=== PATIENT | male | born 1955 | race Caucasian/White ===

== ENCOUNTER 2016-09-19 18:52 | Observation (INO) | payer OTHER ==
[~2016-09-19] VITALS: Ht 175.3 cm; Wt 82.0 kg
[~2016-09-19 18:52] MED LIST: MULT-886 PO
[2016-09-19 18:57] VITALS: BP 200/77; PULSE 41; RESP 16; O2SAT 99
--- NOTE | 2016-09-19 19:32 | ED.REPORT ---
HPI-Chest Pain 40 and Over Date of Service Sep 19, 2016 ED Provider: Franc Whiteside DO A 60 year old male with a history of bradycardia and partial nephrectomy presents to the ED complaining of intermittent chest pain. Each episode lasts several minutes and is described as "sharp." The pt first experienced this pain briefly three days ago, but it seemed to resolve. The pain returned two days ago and continued to worsen through today. The pt states that he is bradycardic at baseline but denies hypertension. Nursing Notes Stated Complaint: PAIN IN CHEST Chief Complaint: Chest Pain Nursing Notes Reviewed: Yes Allergies: Coded Allergies: codeine (Verified Allergy, Intermediate, Shortness of Breath, Hives.TOLERATES MS, 01/27/12) Scheduled Ascorbic Acid (Vitamin C) 1,000 Mg Tab.chew 1,000 MG PO DAILY Multivit with Calcium,Iron,Min (Therapeutic M) 1 Each Tablet 1 EACH PO DAILY Potassium Gluconate (Potassium) 99 Mg Tablet 99 MG PO DAILY Vit C/Horta & Celery Ex/Grp E (Tart Horta Capsule) 1 Each Capsule 1 EACH PO DAILY Scheduled PRN Ibuprofen (Ibuprofen) 200 Mg Capsule 400-600 MG PO Q8H PRN PRN For Headache General Time Seen by MD: 19:30 Chief Complaint Chest pain Hx Obtained From: Patient Arrived By: Walk-in Sudden in Onset?: Yes Onset Occurred: 3 days ago Symptom Duration: Intermittent Recent Healthcare: No recent doctor visit, No recent hospitalization Similar Sx Previous: No Past Medical History Past Medical History bradycardia kidney stones Past Surgical History partial left nephrectomy bilateral hand surgery Social History Alcohol Use: Denies alcohol use Drug Use: Denies drug use Other Social History: Smokeless tobacco Ambulatory Status Independent Review of Systems Constitutional: Denies: Fever Respiratory: Denies: Non-productive cough Cardiovascular: Reports: Chest pain GI: Denies: Abdominal pain Musculoskeletal: Denies: Back pain Skin: Denies Rash Complete sys rev & neg: except as marked. Physical Exam Initial Vital Signs Vital Signs (First) Date Time Temp Pulse Resp B/P Pulse Ox O2 Delivery O2 Flow Rate FiO2 09/19/16 18:57 36.1 41 16 200/77 99 Room Air Initial VS: Reviewed General/Constitutional: Awake, Alert Respiratory / Chest: Atraumatic, Breath sounds NL, Breath sounds = bilat, No respiratory distress Cardiovascular: Regular rhythm, Heart sounds NL marked sinus bradycardia Abdomen: Atraumatic, Soft, Non-tender Neck: Atraumatic, Supple, Full range of motion Back: Atraumatic, Full range of motion Lower Extremity / Pelvis / MS: Atraumatic, Full range of motion Skin: Atraumatic, Color NL, No rash, Warm, Dry Neurologic: Oriented X3, Speech NL, No motor deficits, No sensory deficits Psychiatric: Affect NL, Mood NL Head / Eyes: Atraumatic, Normocephalic, PERRL, EOMI ENT: Atraumatic, Airway patent, Mucous membranes moist Upper Extremity / MS: Atraumatic, Full range of motion Interpretation & Diagnostics Interpretation & Diagnostics: CT Angio Chest Pulmonary Embolism: IMPRESSION: No evidence for central pulmonary embolism. No acute pulmonary disease. Lab Results Interpretation Result Diagram: 09/19/16191809/19/161918 Test 09/19/16 19:19 White Blood Count 4.0th/mm3 (3.8-10.1) Red Blood Count 4.28mil/mm3 (4.40-5.80) Hemoglobin 13.4g/dL (13.8-17.2) Hematocrit 40.9% (41.0-50.0) Mean Corpuscular Volume 95.6fL (81-100) Mean Corpuscular Hemoglobin 31.3pg (27.0-35.0) Mean Corpuscular Hemoglobin Concent 32.8% (32.0-37.0) Red Cell Distribution Width 13.3% (12.3-15.4) Platelet Count 263bil/L (150-400) Neutrophils (%) (Auto) 51.2% (40-74) Lymphocytes (%) (Auto) 41.8% (14-46) Monocytes (%) (Auto) 4.5% (4-12) Eosinophils (%) (Auto) 2.0% (0-5) Basophils (%) (Auto) 0.5% (0-3) D-Dimer 0.82mg/L FEU (<0.50) Sodium Level 140mEq/L (134-144) Potassium Level 4.4mEq/L (3.5-5.2) Chloride Level 102mEq/L (97-108) Carbon Dioxide Level 22mmol/L (18-29) Blood Urea Nitrogen 21mg/dL (8-27) Creatinine 0.62mg/dL (0.76-1.27) Estimat Glomerular Filtration Rate 140mL/min (>59) Glucose Level 84mg/dL (60-99) Calcium Level 9.7mg/dL (8.5-10.1) Magnesium Level 2.2mg/dL (1.6-2.6) Total Bilirubin 0.4mg/dL (0.0-1.2) Aspartate Amino Transf (AST/SGOT) 20U/L (0-50) Alanine Aminotransferase (ALT/SGPT) 17U/L (0-44) Alkaline Phosphatase 72U/L (25-160) Troponin T < 0.010ug/L (0.0-0.011) Total Protein 7.1g/dL (6.4-8.4) Albumin 4.2g/dL (3.4-5.0) Hold Pierre Top Tube Received (Received) Pulse Oximetry Interpretation Pulse Oximetry Interpretation: 99% on room air Pulse Oximetry: Pulse Ox normal ECG Interpretation ECG Interpretation: marked sinus bradycardia with a rate of 38 LVH anterior Q waves, possibly due to LVH Time: 19:17 Interpreted by: ED physician X-Ray Chest Interpretation Chest Xray Interpretation: IMPRESSION: No acute cardiopulmonary disease. Dictated by: Yousif Victoria M.D. on 09/19/2016 at 19:36 Approved by: Yousif Victoria M.D. on 09/19/2016 at 19:37 Interpretation / Wet Read by: Interpret - Radiologist Re-Eval/Medical Decision Med Decision/Clinical Course 60-year-old male presents with a hypertensive crisis and associated chest pain. His pain was treated with IV opiates and the blood pressure was treated with IV hydralazine. I chose this because he is profoundly bradycardic with a heart rate is low as 35. It does appear to be sinus on the EKG and rhythm strips. Laboratory work is reassuring. D-dimer is elevated. CT exam his chest is otherwise unremarkable. Hydralazine opiates and aspirin were given. Pain resolved however his blood pressure started to creep up he would have more pain. Oral enalapril given. Will admit to PCU. Source of Hx: Old records Time of Eval: 21:46 Re-Evaluation/Progress Note: Pt rechecked, whose pain had improved but is now returning. The plan for admission is discussed. The pt understands and agrees with the plan. All questions are addressed at this time. Consultation : Referral / Consult Name: Kely Kate DO Consulted With: Hospitalist Call Returned at: 21:50 Seafood Specialist: Agrees with eval, Agrees with plan, Accepts admit Note: Spoke with Dr. Kate, hospitalist, regarding pt's case. Dr. Kate agrees with the evaluation and agrees to admit the pt. Counseled Regarding: Diagnosis, Lab results, Need for admission Discharge & Departure Primary Impression: Chest pain Chest pain type: unspecified Qualified Code: R07.9 - Chest pain, unspecified Additional Impressions: Hypertensive crisis Bradycardia Disposition: ADMITTED TO HOSPITAL Discharge Condition All VS Reviewed: Yes Condition: Stable Referrals: [facility] Crit Care Except Billable Proc Time Spent: 30-74 minutes Services Performed: Patient management by me, Time spent at bedside, Reviewing test results, Reviewing imaging, Discussing patient care, Documentation in record Critical Care Notes: Managing hypertension, bradycardia, and chest pain Ingris Attestation Portions of this note were transcribed by Scott Foote. I, Dr. Whiteside personally performed the history, physical exam and medical decision-making; I reviewed and confirmed the accuracy of the information in the transcribed note. Signed by: Ingris Middleton, 09/19/16 and 2833. copies to: [facility] Franc Whiteside DO Sep 19, 2016 19:32 SCOTT FOOTE Sep 19, 2016 19:39
[2016-09-19 19:35] LABS: BASOPHILS % (AUTO) 0.5 % (0-3); MONOCYTES % (AUTO) 4.5 % (4-12); Mean Corpuscular Hemoglobin 31.3 pg (27.0-35.0); Mean Corpuscular Volume 95.6 fL (81-100); NEUTROPHILS % (AUTO) 51.2 % (40-74); Platelet Count 263 bil/L (150-400)
--- NOTE | 2016-09-19 19:39 | DRSVH ---
PROCEDURE: X-RAY CHEST ONE VIEW, PORTABLE ([id number]) INDICATIONS: 60 year-old male with chest pain since Monday. TECHNIQUE: One view of the chest was acquired. COMPARISON: [facility], CR, CHEST 2VW, 07/23/2014, 5:27. [facility], , CH EST 2VW, 08/20/2013, 16:12. [facility], , CHEST 2VW, 06/05/2013, 10:51. FINDINGS: Surgical changes and devices: None. Lungs and pleura: No pleural effusions or pneumothorax. Lungs are clear. Mediastinum: Mediastinal contours appear normal. Heart size is normal. Bones and chest wall: No suspicious bony lesions. Overlying soft tissues appear unremarkable. IMPRESSION: No acute cardiopulmonary disease. Dictated by: Yousif Victoria M.D. on 09/19/2016 at 19:36 Approved by: Yousif Victoria M.D. on 09/19/2016 at 19:37
[2016-09-19] MEDS: fentaNYL-PF 50 mCg/mL 2 mL Inj IVPUSH PRN ×3 (19:45→20:58)
[2016-09-19 20:03] LABS: TROPONIN T < 0.010 ug/L (0.0-0.011)
[2016-09-19 20:15] VITALS: BP 211/74; PULSE 40; RESP 13; O2SAT 97
[2016-09-19 20:18] LABS: Magnesium 2.2 mg/dL (1.6-2.6)
--- NOTE | 2016-09-19 20:52 | DRSVH ---
PROCEDURE: CT ANGIO CHEST PULMONARY EMBOLISM ([id number]) INDICATIONS: 60-year-old male with intermittent chest pain and elevated d-dimer level. TECHNIQUE: After the administration of intravenous contrast, 2 mm thick sections acquired from the pulmonary api alejandro to the posterior costophrenic angles. 3-dimensional maximum intensity projection (MIP) coronal a nd sagittal reformats were then acquired through the thorax. For radiation dose reduction, the follo wing was used: automated exposure control, adjustment of mA and/or kV according to patient size. COMPARISON: None. FINDINGS: Image quality: Excellent. Pulmonary arteries: Pulmonary arteries are normal in size, and demonstrate no intraluminal filling d efects to suggest central pulmonary embolism. Lungs and pleura: Lungs are clear. No pleural effusions or pneumothorax. Central and peripheral ai rways are patent. Mediastinum: There is mild cardiomegaly, without pericardial effusion. No mediastinal or hilar adeno saadia. Thoracic aorta is normal in caliber and enhancement. Esophagus is normal in caliber, without hiatal hernia. Bones and chest wall: No suspicious bony lesions. Ribs and thoracic spine appear intact throughout. Thyroid gland is normal in overall size. No axillary or supraclavicular adenopathy. Abdomen: 1.3 cm exophytic lateral left renal cortical simple cyst is incidentally noted. Other visua lized upper abdominal solid organs appear normal in the early arterial phase of enhancement. IMPRESSION: No evidence for central pulmonary embolism. No acute pulmonary disease. Dictated by: Yousif Victoria M.D. on 09/19/2016 at 20:45 Approved by: Yousif Victoria M.D. on 09/19/2016 at 20:51
[2016-09-19 20:58] VITALS: BP 156/109; PULSE 41; RESP 12; O2SAT 96
[2016-09-19] MEDS ORDERED: HYDROmorphone 0.5 mg/0.5 mL iSecure Syringe IVPUSH ONE (21:05)
[2016-09-19] MEDS ORDERED: hydrALAZINE 20 mg/mL Inj IV ONE ×2 (21:05→23:45)
[2016-09-19] MEDS ORDERED: ASCO100089 PO (21:36)
[2016-09-19] MEDS ORDERED: POTA99TA21 PO (21:36)
[2016-09-19] MEDS ORDERED: VIT1CAPS4 PO (21:36)
[2016-09-19] MEDS ORDERED: MULT-140 PO (21:36)
[2016-09-19] MEDS ORDERED: IBUP200C PO (21:37)
[2016-09-19 22:01] VITALS: BP 141/61; PULSE 44; RESP 16; O2SAT 96
[2016-09-19] MEDS ORDERED: Ondansetron 2 mg/mL 2 mL Inj IVPUSH PRN (22:35)
[2016-09-19] MEDS ORDERED: Atropine 1 mg/10 mL (Code) Syringe IVPUSH PRN (22:35)
[2016-09-19] MEDS ORDERED: Senna-Docusate 8.6-50 mg Tablet PO PRN (22:35)
[2016-09-19] MEDS ORDERED: Polyethylene Glycol (PEG) 17 Gm Powder PO PRN (22:35)
[2016-09-19] MEDS ORDERED: Alum-Mag Hydrox-Simeth 30 mL Suspension PO PRN (22:35)
[2016-09-19 23:12] VITALS: BP 141/61; PULSE 44; RESP 16; O2SAT 96
[2016-09-19 23:26] VITALS: PULSE 43
--- NOTE | 2016-09-19 23:39 | PCM.HPMED ---
Subjective Date of Service Sep 19, 2016 Primary Provider: Admitting Physician: Kely Kate DO Primary Care Physician: Sincere Zhang Attending Physician: Kely Kate DO Admit Status: From the Emergency Department Chief Complaint: Chest pain History of Present Illness: Very pleasant 60yo man with long documented history of asymptomatic bradycardia presents with new onset of chest pain at rest worsening over the last four days. His blood pressure in the ER was initially 200/776 and was controlled with Hydralazine 10mg IV. He describes the chest pain as a constant aching pain deep in his chest and points to a line across the chest at approximately the nipple line as the location. It was initially lasting only a few moments very intermittently and slow became constant at which point he came to the ER. He has felt cold since this started, has had headaches, and some dizziness. He denies radiation of pain, nausea, sweating, cough, shortness of breath. He works in a [employer] doing heavy work, but denies any strain or injury that could have contributed to this pain. Review of Systems: 14point ROS is otherwise negative except as noted in the HPI above. Allergies Coded Allergies: codeine (Verified Allergy, Intermediate, Shortness of Breath, Hives.TOLERATES MS, 01/27/12) Home Medications Multivitamin PMH Kidney stone Surgical History Partial Nephrectomy for severe kidney stone damage 30 years ago Dupuytren's contracture surgery Family History Father of [place] Mother at age 43 of unknown causes Social History Hx Alcohol Use: Yes (one six pack of beer over each weekend) Hx Substance Use: No Hx Tobacco Use: Yes (chews) Smoking Status: Never Smoker Living Arrangement: with Family Exam Vital Signs Vital Sign - Last Date Time Temp Pulse Resp B/P Pulse Ox O2 Delivery O2 Flow Rate FiO2 09/19/16 23:12 36.1 44 16 141/61 96 Room Air Exam General: Alert, Oriented X3, Cooperative, No Acute Distress Head: Normocephalic, atraumatic. External ears normal. Eyes: PERRLA, EOMI. Anicteric sclerae. Mouth: Mouth Normal, Mucous Membranes Moist/[place], poor dentition, no upper teeth, no use of dentures Neck: Neck supple with full range of motion. Chest & Lungs: Clear to auscultation bilaterally with no crackles, wheezes, or rhonchi. Chest is very tender to palpation: anterior, bilateral, at the level of rib 4. Cardiovascular: Bradycardic with Regular Rhythm, Normal S1, Normal S2, No Murmurs/Rubs/Gallops Abdomen: Non-tender, Non-distended, No masses, Normoactive bowel tones, Soft Musculoskeletal: Normal Range of Motion Extremities: No cyanosis/clubbing/edema bilaterally Neurological: Grossly Neurologically Intact, Cranial Nerves 2-12 Intact, Normal Speech. Lab and Diagnostics Labs Laboratory Tests Test 09/19/16 19:19 09/19/16 22:55 White Blood Count 4.0th/mm3 (3.8-10.1) Red Blood Count 4.28mil/mm3 (4.40-5.80) Hemoglobin 13.4g/dL (13.8-17.2) Hematocrit 40.9% (41.0-50.0) Mean Corpuscular Volume 95.6fL (81-100) Mean Corpuscular Hemoglobin 31.3pg (27.0-35.0) Mean Corpuscular Hemoglobin Concent 32.8% (32.0-37.0) Red Cell Distribution Width 13.3% (12.3-15.4) Platelet Count 263bil/L (150-400) Neutrophils (%) (Auto) 51.2% (40-74) Lymphocytes (%) (Auto) 41.8% (14-46) Monocytes (%) (Auto) 4.5% (4-12) Eosinophils (%) (Auto) 2.0% (0-5) Basophils (%) (Auto) 0.5% (0-3) D-Dimer 0.82mg/L FEU (<0.50) Sodium Level 140mEq/L (134-144) Potassium Level 4.4mEq/L (3.5-5.2) Chloride Level 102mEq/L (97-108) Carbon Dioxide Level 22mmol/L (18-29) Blood Urea Nitrogen 21mg/dL (8-27) Creatinine 0.62mg/dL (0.76-1.27) Estimat Glomerular Filtration Rate 140mL/min (>59) Glucose Level 84mg/dL (60-99) Calcium Level 9.7mg/dL (8.5-10.1) Magnesium Level 2.2mg/dL (1.6-2.6) Total Bilirubin 0.4mg/dL (0.0-1.2) Aspartate Amino Transf (AST/SGOT) 20U/L (0-50) Alanine Aminotransferase (ALT/SGPT) 17U/L (0-44) Alkaline Phosphatase 72U/L (25-160) Troponin T < 0.010ug/L (0.0-0.011) 0.010ug/L (0.0-0.011) Total Protein 7.1g/dL (6.4-8.4) Albumin 4.2g/dL (3.4-5.0) Hold Pierre Top Tube Received (Received) Received (Received) Result Diagram: 09/19/16191809/19/161918 X-Rays, CTs and MRIs CTA chest IMPRESSION: No evidence for central pulmonary embolism. No acute pulmonary disease. CXR indicating no acute cardiopulmonary disease 12-lead ECG marked sinus bradycardia with a rate of 38 LVH anterior Q waves, possibly due to LVH Assessment & Plan 60yo man with history of bradycardia presenting with new onset chest pain worsening over 4 days and hypertensive emergency. Both were controlled well in the ED with hydralazine and IV narcotic pain medications. Patient's bradycardia is documented in outpatient records as asymptomatic and present as far back as 2006. He has no history of HTN. He does report some heartburn symptoms in the past but none currently. 1. Chest pain, POA, secondary to costochondritis/chest wall pain vs hypertensive emergency vs less likely NSTEMI with normal troponin and EKG positive for bradycardia and LVH. Chest wall is very tender to palpation. -Repeat of Hydralazine 10mg IV on the floor after SBP increased again over 200. -Phone consult with Dr Chase to discuss the Hydralazine and other treatment. Per Dr Chase we added Amlodipine 10mg PO and Lisinopril 20mg PO -If BP not controlled on this regimen consider placing patient in CCU and starting a CCB drip. -Morphine 1-5mg IV q5m PRN for chest pain. -Consider adding a muscle relaxant 2. Bradycardia, POA, chronic and asymptomatic, no rate increase with pain or high blood pressure. 3. History of GERD, asymptomatic at present but with weekly drinking of a six pack of beer it is possible that silent reflux may have a part in his current problems. -Pantoprazole 40mg IV BID ordered -GI cocktail with viscous lidocaine did not improve the chest pain, but did make the patient's mouth numb. PRN medications ordered for nausea, and constipation ADDENDUM: Patient's chest pain not well controlled with Morphine 4mg IV, BP was stable in normal limits so he was given one dose of Nitrostat sublingual and BP dropped to 87/33 with no improvement of pain, BP stabilized quickly with a bolus of NS 500ml IV. Repeat EKG indicates bradycardia but no indications of ischemia, unchanged from previous EKGs. With blood pressure controlled and morning labs back showing a third normal troponin along with an excellent lipid panel this chest pain can most likely be attributed to chostochondritis or muscle strain of the chest wall. Pain Evaluation: Adequate Pain Control GI Prophylaxis: Proton Pump Inhibitor VTE Prophylaxis: Sub-Q Enoxaparin Resuscitation Status: CPR: Attempt Resuscitation Attending Statement The patient was seen and examined together with house staff on 09/20/2016 and I agree with the history, exam and plan as outlined in the note above. Kurtis Go DO Sep 19, 2016 23:39 Kely Kate DO Sep 20, 2016 06:10
[2016-09-19] MEDS: Sodium Chloride LOK Flush 10 mL Syringe IVFLUSH SCH (23:59)
[2016-09-20 00:06] VITALS: BP 185/71; PULSE 48; RESP 12; O2SAT 97
[2016-09-20] MEDS: Pantoprazole 4 mg/mL 10 mL Inj IVPUSH SCH ×2 (00:51→08:43)
[2016-09-20] MEDS ORDERED: LidocaineVisc 2%:Antacid 1:1 10 mL Syringe PO ONE (03:10)
[2016-09-20 05:25] LABS: TROPONIN T 0.01 ug/L (0.0-0.011)
[2016-09-20 05:38] VITALS: BP 129/61; PULSE 41; RESP 14; O2SAT 97
[2016-09-20] MEDS ORDERED: HYDROmorphone 1 mg/mL Inj IVPUSH ONE (05:55)
--- NOTE | 2016-09-20 06:32 | NUR ---
Admit Pt arrived to [facility] room 2012 at approx. 2305 from ED; report received from Caro Zhang RN. All belongings transferred with pt; at bedside. Admit documentation and med rec completed. Information on advance directive given. Tele SB 30s-50s. No acute symptoms of bradycardia. Pt reports chronic condition. Pt c/o 9/10 sharp CP upon admit, SBP 216. MD collado, hydralazine ordered and administered with subsequent lowering of BP; additional BP medications and Protonix administered. Pt reports no change to CP. 2mg morphine administered with no relief; MD collado, additional 4mg administered. Pt reports pain "slightly" better. MD collado, pt given Tylenol without relief and order obtained to hold additional morphine for one hour minimum. GI cocktail order obtained and administered, pt denies any effect other than "my mouth feels numb." MD collado, order obtained to give 1 SL nitro. SBP prior to administration 120s; immediate drop to 80s-90s after administration with pt report of dizziness and jitters. MD collado, orders obtained for NS bolus; approx. 90mls administered with spontaneous rise in BP to SBP 120s and stable. MD aware. EKG obtained. Hospitalist consulted for pt care, order given for Dilaudid IVP one time; 1mg given with relief from 10/10 CP to 7/10. Pt reports Dilaudid more effective than any other medication. Unable to rest this shift.
[2016-09-20] MEDS ORDERED: HYDR-4003 PO (08:07)
--- NOTE | 2016-09-20 08:07 | PCM.DIMED ---
Discharge Instructions Date of Service Sep 20, 2016 Dates of Hospitalization Sep 19, 2016 at 22:06 Discharge Diagnosis Discharge Diagnosis 1. Chest pain secondary to chest wall, improved 2. Transient hypotension secondary to pain. 3. Chronic bradycardia Diet No restrictions Activity No restrictions Call your provider Shortness of breath, Chest pain Patient Instructions See your doctor (PCP, at [facility]). Ramsey Quiroga MD Sep 20, 2016 08:06
[2016-09-20] MEDS: Sodium Chloride LOK Flush 10 mL Syringe IVFLUSH SCH (08:30)
[2016-09-20] MEDS ORDERED: Heparin 5,000 Unit/mL Inj SUBQ SCH (08:30)
[2016-09-20] MEDS ORDERED: HYDROmorphone 0.5 mg/0.5 mL iSecure Syringe IVPUSH ONE (08:55)
--- NOTE | 2016-09-20 09:24 | NUR ---
Social Work: Brief Note/Readiness for Discharge Data: EMR reviewed. Pt is a 60 year old male admitted 09/19/16 for chest pain, hypertension, bradycardia per H&P. Pt has no insurance at this time. [facility] provided [facility] to pt. Pt states that admissions gave him a business card to contact regarding insurance after hospitalization. Pt's PCP is through [facility]. SW met with pt and Pam [phone] at bedside regarding discharge plan, SW role explained. Pt alert and oriented x3. [place] Per H&P, pt drinks a 6 pack of beer every weekend. SW spoke with pt regarding this, pt denies any concerns related to his drinking, emphatically stating "I can stop whenever I want, I don't drink on the weekdays." Pt declined CD resources. Pt denied any suicidal or homicidal ideation. Pt to discharge home with to transport via POV. No anticipated discharge needs. SW will continue to follow. Assessment: [place]. Plan: Pt is not concerned with ETOH use, declined CD resources. [facility] provided. Pt to discharge home with to transport via POV. No anticipated discharge needs. SW will continue to follow. BERYL Dias
--- NOTE | 2016-09-20 09:27 | NUR ---
discharge 0935 pt discharged. PIV removed with ease. Pt spoke to Dr Quiroga about dc meds, he requested dilaudid. Dr Quiroga declined to give him dilaudid. All dc questions asked and answered.
--- NOTE | 2016-09-23 13:47 | PCM.DC.MED ---
Discharge Summary Date of Service Sep 20, 2016 Dates of Hospitalization Date of Hospital Admission Sep 19, 2016 at 22:06 Date of Discharge: Sep 20, 2016 Providers: Admitting Physician: Kely Kate DO Primary Care Physician: Sincere Zhang [facility] Attending Physician: Kely Kate DO Diagnosis at Time of Discharge Diagnosis at Time of Discharge 1. Chest pain secondary to chest wall, improved 2. Transient hypotension secondary to pain. 3. Chronic bradycardia Consultations None Procedures XRay, CTs & MRIs CTA chest IMPRESSION: No evidence for central pulmonary embolism. No acute pulmonary disease. CXR indicating no acute cardiopulmonary disease ECG 12 Lead marked sinus bradycardia with a rate of 38 LVH anterior Q waves, possibly due to LVH Invasive Procedures None Brief History Very pleasant 60yo man with long documented history of asymptomatic bradycardia presents with new onset of chest pain at rest worsening over the last four days. His blood pressure in the ER was initially 200/776 and was controlled with Hydralazine 10mg IV. He describes the chest pain as a constant aching pain deep in his chest and points to a line across the chest at approximately the nipple line as the location. It was initially lasting only a few moments very intermittently and slow became constant at which point he came to the ER. He has felt cold since this started, has had headaches, and some dizziness. He denies radiation of pain, nausea, sweating, cough, shortness of breath. He works in a [employer] doing heavy work, but denies any strain or injury that could have contributed to this pain. Hospital Course 60yo man with history of bradycardia presenting with new onset chest pain worsening over 4 days and hypertensive emergency. Both were controlled well in the ED with hydralazine and IV narcotic pain medications. Patient's bradycardia is documented in outpatient records as asymptomatic and present as far back as 2006. He has no history of HTN. He does report some heartburn symptoms in the past but none currently. 1. Chest pain, POA, secondary to costochondritis/chest wall pain vs hypertensive emergency vs less likely NSTEMI with normal troponin and EKG positive for bradycardia and LVH. Chest wall is very tender to palpation. -Repeat of Hydralazine 10mg IV on the floor after SBP increased again over 200. -Phone consult with Dr Chase to discuss the Hydralazine and other treatment. Per Dr Chase we added Amlodipine 10mg PO and Lisinopril 20mg PO -If BP not controlled on this regimen consider placing patient in CCU and starting a CCB drip. -Morphine 1-5mg IV q5m PRN for chest pain. -Consider adding a muscle relaxant 2. Bradycardia, POA, chronic and asymptomatic, no rate increase with pain or high blood pressure. 3. History of GERD, asymptomatic at present but with weekly drinking of a six pack of beer it is possible that silent reflux may have a part in his current problems. -Pantoprazole 40mg IV BID ordered -GI cocktail with viscous lidocaine did not improve the chest pain, but did make the patient's mouth numb. PRN medications ordered for nausea, and constipation ADDENDUM: Patient's chest pain not well controlled with Morphine 4mg IV, BP was stable in normal limits so he was given one dose of Nitrostat sublingual and BP dropped to 87/33 with no improvement of pain, BP stabilized quickly with a bolus of NS 500ml IV. Repeat EKG indicates bradycardia but no indications of ischemia, unchanged from previous EKGs. With blood pressure controlled and morning labs back showing a third normal troponin along with an excellent lipid panel this chest pain can most likely be attributed to chostochondritis or muscle strain of the chest wall. Course: He was admitted and ruled out with serial cardiac enzymes. He was reassured the pain sounded muscular and not cardiac and he declined any further cardiac workup. Exam Vital Signs (Last) Date Time Temp Pulse Resp B/P Pulse Ox O2 Delivery O2 Flow Rate FiO2 09/20/16 05:38 36.6 41 14 129/61 97 Room Air Exam Patient was seend and examined on the day of discharge Test 09/19/16 19:19 09/19/16 22:55 09/20/16 04:40 White Blood Count 4.0th/mm3 (3.8-10.1) Red Blood Count 4.28mil/mm3 (4.40-5.80) Hemoglobin 13.4g/dL (13.8-17.2) Hematocrit 40.9% (41.0-50.0) Mean Corpuscular Volume 95.6fL (81-100) Mean Corpuscular Hemoglobin 31.3pg (27.0-35.0) Mean Corpuscular Hemoglobin Concent 32.8% (32.0-37.0) Red Cell Distribution Width 13.3% (12.3-15.4) Platelet Count 263bil/L (150-400) Neutrophils (%) (Auto) 51.2% (40-74) Lymphocytes (%) (Auto) 41.8% (14-46) Monocytes (%) (Auto) 4.5% (4-12) Eosinophils (%) (Auto) 2.0% (0-5) Basophils (%) (Auto) 0.5% (0-3) D-Dimer 0.82mg/L FEU (<0.50) Sodium Level 140mEq/L (134-144) Potassium Level 4.4mEq/L (3.5-5.2) Chloride Level 102mEq/L (97-108) Carbon Dioxide Level 22mmol/L (18-29) Blood Urea Nitrogen 21mg/dL (8-27) Creatinine 0.62mg/dL (0.76-1.27) Estimat Glomerular Filtration Rate 140mL/min (>59) Glucose Level 84mg/dL (60-99) Calcium Level 9.7mg/dL (8.5-10.1) Magnesium Level 2.2mg/dL (1.6-2.6) Total Bilirubin 0.4mg/dL (0.0-1.2) Aspartate Amino Transf (AST/SGOT) 20U/L (0-50) Alanine Aminotransferase (ALT/SGPT) 17U/L (0-44) Alkaline Phosphatase 72U/L (25-160) Total Protein 7.1g/dL (6.4-8.4) Albumin 4.2g/dL (3.4-5.0) Hold Pierre Top Tube Received (Received) Troponin T 0.010ug/L (0.0-0.011) Triglycerides Level 90mg/dL (0-149) Cholesterol Level 160mg/dL (100-199) LDL Cholesterol, Calculated 58.000mg/dL (0-99) VLDL Cholesterol 18.000mg/dL HDL Cholesterol 84mg/dL (>39) Cholesterol/HDL Ratio 1.90 (0.0-4.4) Discharge Medications Discharge Medications Ascorbic Acid (Vitamin C) 1,000 Mg Tab.chew 1,000 MG PO DAILY (Reported) Multivit with Calcium,Iron,Min (Therapeutic M) 1 Each Tablet 1 EACH PO DAILY ( Reported) Potassium Gluconate (Potassium) 99 Mg Tablet 99 MG PO DAILY (Reported) Vit C/Horta & Celery Ex/Grp E (Tart Horta Capsule) 1 Each Capsule 1 EACH PO DAILY (Reported) As needed Hydrocodone-Acetaminophen 5-325 mg (Hydrocodone-Acetaminophen 5-325 mg) 1 Each Tablet 1 TABLET PO Q4H PRN PRN For Pain Prescribed by: JIMENEZ VEGA MD Ibuprofen (Ibuprofen) 200 Mg Capsule 400-600 MG PO Q8H PRN PRN For Headache ( Reported) Followup Plan Disposition: Home, with . Discharge Diet: No restrictions Discharge Activity: No restrictions Patient Instructions See your doctor (PCP, at resident's clinic). Time spent 30 minutes Jimenez Vega MD Sep 23, 2016 13:47
== END 2016-09-20 10:00 | disposition home or self-care (01) ==
LOC: SED 18:52 → PCC 22:06
PROVIDERS: ADMIT Internal Medicine; ATTEND Internal Medicine
DX: R07.9 Chest pain, unspecified (principal); M94.0 Chondrocostal junction syndrome [Tietze]; I95.89 Other hypotension; R00.1 Bradycardia, unspecified; I16.0 Hypertensive urgency; K21.9 Gastro-esophageal reflux disease without esophagitis; Z90.5 Acquired absence of kidney; Z88.8 Allergy status to other drugs, medicaments and biological substances; Z87.442 Personal history of urinary calculi; Z72.0 Tobacco use
CPT/HCPCS: 36415; 71010; 71275; 80053; 80061; 82948; 83735; 84484; 85025; 85378; 93005; 96374; 96375; 96376; 99291; G0378; J0360; J1170; J2270; J3010; Q9967